=== PATIENT | male | born 1960 | race Caucasian/White ===

== ENCOUNTER 2017-03-03 08:36 | Emergency (ER) | payer OTHER ==
[~2017-03-03 08:36] MED LIST: ANDROGEL TOP; ATEN1TAB71 PO; LOTE40TA PO; LOVA1TAB47 PO; POTA-243 PO
[2017-03-03 08:38] VITALS: BP 181/93; PULSE 80; RESP 18; TEMP 98.4; O2SAT 99
[2017-03-03 08:55] VITALS: BP 131/85
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
== END 2017-03-03 10:31 | disposition home or self-care (01) ==
LOC: NEPD 08:36
DX: R07.89 Other chest pain (principal); M25.511 Pain in right shoulder; I10 Essential (primary) hypertension; E78.00 Pure hypercholesterolemia, unspecified; Z72.0 Tobacco use; Z86.79 Personal history of other diseases of the circulatory system; Z87.438 Personal history of other diseases of male genital organs; V49.88XA Car occupant (driver) (passenger) injured in other specified transport accidents, initial encounter
CPT/HCPCS: 71046; 99283